=== PATIENT | male | born 1970 | race Hispanic/Latino ===

== ENCOUNTER 2016-10-31 17:52 | Emergency (ER) | payer MEDICARE, MEDICAID ==
[2016-10-31 18:24] VITALS: BMI 44.9
[2016-10-31 18:27] VITALS: BP 137/97; PULSE 81; RESP 18; TEMP 98.7; O2SAT 97
[2016-10-31] MEDS ORDERED: Amoxicillin-Clav 875-125 mg Tab PO STA (18:51)
--- NOTE | 2016-10-31 18:55 | ED PDOC ---
Arrival/HPI - General Historian: Patient - General Chief Complaint: ENT Problem Time Seen by Provider: 10/31/16 18:51 - History of Present Illness Narrative History of Present Illness (Text): 10/31/16 18:52 45 y/o male, pmh including htn, nkda, c/o frontal sinus pressure and coughing x 2 days with no recent traveling. Sinus pressure, associated with the runny nose , no bodyache or fever, no chills or night sweat, no chest pain or shortness of breath, no numbness or tingling, no palpitation, no other medical or psychological complaints. (Andres Machado) Past Medical History - Provider Review Nursing Documentation Reviewed: Yes - Infectious Disease Hx of Infectious Diseases: None - Tetanus Immunization Tetanus Immunization: Unknown - Cardiac Hx Hypertension: Yes - Pulmonary Hx Asthma: Yes - Neurological Hx Neurological Disorder: No - HEENT Hx HEENT Disorder: No - Renal Hx Renal Disorder: No - Endocrine/Metabolic Hx Diabetes Mellitus Type 2: Yes - Hematological/Oncological Hx Blood Disorders: No - Integumentary Hx Dermatological Disorder: No - Musculoskeletal/Rheumatological Hx Musculoskeletal Disorders: No - Gastrointestinal Hx Gastrointestinal Disorders: No - Genitourinary/Gynecological Hx Genitourinary Disorders: No - Psychiatric Hx Depression: No Hx Substance Use: No - Past Surgical History Past Surgical History: No Previous - Anesthesia Hx Anesthesia: No Hx Anesthesia Reactions: No Hx Malignant Hyperthermia: No - Suicidal Assessment Feels Threatened In Home Enviroment: No Family/Social History - Physician Review Nursing Documentation Reviewed: Yes Family/Social History: Unknown Family HX Smoking Status: Current Some Days Smoker Hx Alcohol Use: Yes Frequency of alcohol use: Socially Hx Substance Use: No Hx Substance Use Treatment: No Allergies/Home Meds Allergies/Adverse Reactions: Allergies No Known Allergies Allergy (Verified 05/23/16 13:47) Review of Systems - Review of Systems Constitutional: absent: Fatigue, Fevers Eyes: absent: Vision Changes ENT: Rhinorrhea, Sinus Congestion. absent: Hearing Changes Respiratory: Cough. absent: SOB, Sputum, Wheezing Cardiovascular: absent: Chest Pain, Palpitations, Edema Gastrointestinal: absent: Abdominal Pain, Diarrhea, Nausea, Vomiting Musculoskeletal: absent: Arthralgias, Back Pain, Neck Pain, Joint Swelling, Myalgias Neurological: absent: Headache, Dizziness, Focal Weakness, Gait Changes, Speech Changes, Facial Droop, Disequilibrium, Seizure Endocrine: absent: Diaphoresis, Polyuria, Polydipsia Hemo/Lymphatic: absent: Adenopathy, Easy Bleeding, Easy Bruising Physical Exam Vital Signs Reviewed: Yes Temperature: Afebrile Blood Pressure: Normal Pulse: Regular Respiratory Rate: Normal Appearance: Positive for: Well-Appearing, Non-Toxic, Comfortable Pain Distress: Moderate Mental Status: Positive for: Alert and Oriented X 3 - Systems Exam Head: Present: Atraumatic, Normocephalic, Other (+ttp on the rt. frontal sinus with no swelling, no periorbital or facial swelling. ) Pupils: Present: PERRL Extroacular Muscles: Present: EOMI Conjunctiva: Present: Normal Mouth: Present: Moist Mucous Membranes Neck: Present: Normal Range of Motion Respiratory/Chest: Present: Clear to Auscultation, Good Air Exchange. No: Respiratory Distress, Accessory Muscle Use, Wheezes, Decreased Breath Sounds, Rales, Retracting, Rhonchi Cardiovascular: Present: Regular Rate and Rhythm, Normal S1, S2. No: Murmurs Abdomen: Present: Normal Bowel Sounds. No: Tenderness, Distention, Peritoneal Signs, Rebound, Guarding Back: Present: Normal Inspection Upper Extremity: Present: Normal Inspection. No: Cyanosis, Edema Lower Extremity: Present: Normal Inspection. No: Edema Neurological: Present: GCS=15, Speech Normal, Motor Func Grossly Intact, Gait Normal, Memory Normal Skin: Present: Warm, Dry, Normal Color. No: Rashes Psychiatric: Present: Alert, Oriented x 3, Normal Insight, Normal Concentration Vital Signs Temp Pulse Resp BP Pulse Ox 10/31/16 18:24 98.7 F 81 18 137/97 H 97 Medical Decision Making ED Course and Treatment: I was available for consultation during PA evaluation. The chart was reviewed by me, and I agree with disposition. The documented history was done by the physician cash applications associate. The documented physical exam was done by the physician cash applications associate. The documented procedures were done by the physician cash applications associate. ( Esau Wadsworth) 10/31/16 18:54 -Chest x-ray -Rapid flu -Toradol and augmentin -Observe and reassess 10/31/16 20:24 -Pt. refused chest x-ray, stated that he will see his own pmd tomorrow as he is feeling better already. -Discharge home with cefdinir, flonase, motrin, zyrtec, promethazine dm, stay hydrated, follow up with your own pmd and ENT within 2 days, return to the ER for any new or worsening signs or symptoms. (Andres Machado) - Lab Interpretations Lab Results: Lab Results 10/31/16 19:03: Influenza Typ A,B (EIA) Negative for flu a/b - RAD Interpretation Radiology Orders: 10/31/16 18:58 CHEST PORTABLE [RAD] Stat - Medication Orders Current Medication Orders: Discontinued Medications Amoxicillin/Clavulanate Potassium (Augmentin 875 Mg-125 Mg Tab) 1 tab PO STAT STA PRN Reason: Protocol Stop: 10/31/16 18:52 Last Admin: 10/31/16 19:00 Dose: 1 TAB Ketorolac Tromethamine (Toradol) 60 mg IM STAT STA Stop: 10/31/16 18:52 Last Admin: 10/31/16 19:01 Dose: 60 MG IM Administration Charges Document 10/31/16 19:01 SE (Rec: 10/31/16 19:01 SE [id number]) Injection Site MAR Injection Site Left Arm Charges for Administration # of IM Administrations 1 - PA / [employer] / Resident Statement MD/DO has reviewed & agrees with the documentation as recorded. Disposition/Present on Arrival - Present on Arrival Any Indicators Present on Arrival: No History of DVT/PE: No History of Uncontrolled Diabetes: Yes Urinary Catheter: No History of Decub. Ulcer: No History Surgical Site Infection Following: None - Disposition Have Diagnosis and Disposition been Completed?: Yes Disposition Time: 18:54 Patient Plan: Discharge - Disposition Diagnosis: Sinusitis Disposition: HOME/ ROUTINE Patient Problems: Current Active Problems Problem Status Diagnosed Sinusitis Acute Condition: IMPROVED Additional Instructions: Discharge home with cefdinir, flonase, motrin, zyrtec, promethazine dm, stay hydrated, follow up with your own pmd and ENT within 2 days, return to the ER for any new or worsening signs or symptoms. Prescriptions: Fluticasone Nasal [Flonase] 2 spr NS DAILY #1 spr Ibuprofen [Motrin] 600 mg PO QID PRN #24 tab PRN Reason: Other Cefdinir [Omnicef] 300 mg PO BID #20 cap Promethazine DM [Phenergan DM Oral Syrup] 5 ml PO QID PRN #125 ml PRN Reason: Other Cetirizine HCl [Zyrtec] 10 mg PO DAILY #7 tab.rapdis Referrals: Michael Main MD [Primary Care Provider] - Follow up with primary Hugo Ralph DO [Doctor Osteopathy] - Follow up with primary Forms: WORK NOTE
== END 2016-10-31 20:30 | disposition home or self-care (01) ==
LOC: ED 17:52
DX: J32.9 Chronic sinusitis, unspecified (principal); I10 Essential (primary) hypertension
CPT/HCPCS: 87804; 96372; 99282; J1885

== ENCOUNTER 2017-03-09 13:23 | Emergency (ER) | payer MEDICAID, MEDICARE ==
[2017-03-09 13:48] VITALS: BMI 44.4
--- NOTE | 2017-03-09 13:59 | ED PDOC ---
Arrival/HPI - General Chief Complaint: Shortness Of Breath Time Seen by Provider: 03/09/17 13:29 Historian: Patient - History of Present Illness Narrative History of Present Illness (Text): 03/09/17 13:56 46 y/o male with past medical history of asthma presents for SOB since last night. SOB has been gradually worsening. Patient has been using Ventolin inhaler without much relief. Patient denies having any CP, cough, F/C, congestion, sick contact, LE pain or swelling. Patient does not have hx of blood clot. patient denies having any hx. of intubation. Time/Duration: 24 hours Symptom Onset: Gradual Symptom Course: Worsening Context: Home Past Medical History - Provider Review Nursing Documentation Reviewed: Yes - Travel History Have you recently traveled outside [place] w/in the past 3 mons?: No - Infectious Disease Hx of Infectious Diseases: None - Tetanus Immunization Tetanus Immunization: Unknown - Cardiac Hx Hypertension: Yes - Pulmonary Hx Asthma: Yes - Neurological Hx Neurological Disorder: No - HEENT Hx HEENT Disorder: No - Renal Hx Renal Disorder: No - Endocrine/Metabolic Hx Diabetes Mellitus Type 2: Yes - Hematological/Oncological Hx Blood Disorders: No - Integumentary Hx Dermatological Disorder: No - Musculoskeletal/Rheumatological Hx Musculoskeletal Disorders: No - Gastrointestinal Hx Gastrointestinal Disorders: No - Genitourinary/Gynecological Hx Genitourinary Disorders: No - Psychiatric Hx Depression: No Hx Substance Use: No - Past Surgical History Past Surgical History: No Previous - Anesthesia Hx Anesthesia: No Hx Anesthesia Reactions: No Hx Malignant Hyperthermia: No - Suicidal Assessment Feels Threatened In Home Enviroment: No Family/Social History - Physician Review Nursing Documentation Reviewed: Yes Family/Social History: Unknown Family HX Smoking Status: Current Some Days Smoker Hx Alcohol Use: Yes Frequency of alcohol use: Socially Hx Substance Use: No Hx Substance Use Treatment: No Allergies/Home Meds Allergies/Adverse Reactions: Allergies No Known Allergies Allergy (Verified 05/23/16 13:47) Review of Systems - Review of Systems Constitutional: Normal. absent: Fatigue, Fevers Eyes: Normal. absent: Vision Changes, Eye Pain ENT: Normal. absent: Sore Throat, Rhinorrhea, Sinus Congestion Respiratory: SOB, Wheezing. absent: Cough, Sputum Cardiovascular: absent: Chest Pain, Palpitations, Edema, Calf Pain Gastrointestinal: Normal. absent: Abdominal Pain, Constipation, Diarrhea, Nausea, Vomiting Genitourinary Male: Normal. absent: Dysuria, Frequency Skin: Normal. absent: Rash, Pruritis, Skin Lesions Neurological: absent: Headache, Dizziness, Disequilibrium Endocrine: Normal. absent: Diaphoresis, Polyuria Hemo/Lymphatic: Normal. absent: Adenopathy Psychiatric: Normal. absent: Anxiety, Depression Physical Exam Vital Signs Reviewed: Yes Vital Signs Temp Pulse Resp BP Pulse Ox 03/09/17 15:40 97.6 F 106 H 18 126/75 96 03/09/17 15:23 108 H 18 126/75 96 03/09/17 13:48 18 03/09/17 13:45 98.5 F 113 H 16 146/89 98 Temperature: Afebrile Blood Pressure: Hypertensive Pulse: Tachycardic Respiratory Rate: Normal Appearance: Positive for: Well-Appearing, Non-Toxic, Comfortable Pain Distress: None Mental Status: Positive for: Alert and Oriented X 3 - Systems Exam Head: Present: Atraumatic, Normocephalic Pupils: Present: PERRL Extroacular Muscles: Present: EOMI Mouth: Present: Moist Mucous Membranes Respiratory/Chest: Present: Clear to Auscultation, Good Air Exchange. No: Respiratory Distress, Accessory Muscle Use Cardiovascular: Present: Regular Rate and Rhythm, Normal S1, S2. No: Murmurs, Rub, Gallop, Muffled Abdomen: Present: Normal Bowel Sounds. No: Tenderness, Distention, Peritoneal Signs, Rebound, Guarding Lower Extremity: Present: Normal Inspection. No: Edema, CALF TENDERNESS Neurological: Present: GCS=15, Speech Normal Skin: Present: Warm, Dry, Normal Color. No: Rashes, Cold, Pale Psychiatric: Present: Alert, Oriented x 3, Normal Insight, Normal Concentration Medical Decision Making ED Course and Treatment: 03/09/17 14:00 46 y/o M presents with SOB likely due to asthma exacerbation Will check CXR Patient will be given prednisone 60 mg PO stat and give a duoneb breathing treatment 03/09/17 14:02 Well's criteria is 1.5 which means 1.5% chance of PE 03/09/17 15:16 Patient is saturating at 100%. Patient states that his breathing has improved. Will discharge patient will nebulizer machine, steroids and albuterol - RAD Interpretation Radiology Orders: 03/09/17 13:48 CXR [CHEST PORTABLE] [RAD] Stat - EKG Interpretation EKG Interpretation (Text): 03/09/17 14:23 Sinus tachycardia HR 108. No St changes, normal axis and normal intervals Interpreted by ED Physician: Yes Type: 12 lead EKG - Medication Orders Current Medication Orders: Discontinued Medications Albuterol/Ipratropium (Duoneb 3 Mg/0.5 Mg (3 Ml) Ud) 3 ml IH Q15M VENITA Stop: 03/09/17 14:31 Last Admin: 03/09/17 15:09 Dose: 3 ml Methylprednisolone (Solu-Medrol) 125 mg IVP STAT STA Stop: 03/09/17 15:37 Last Admin: 03/09/17 14:05 Dose: 125 mg Wells Criteria for PE - Wells Criteria for Pulmonary Embolism Clinical Signs and Symptoms of DVT: No P.E is #1 Diagnosis, or Equally Likely: No Heart Rate >100: Yes Immobilization at least 3 days;Surgery previous 4 weeks: No Previous, objectively diagnosed PE or DVT: No Hemoptysis: No Malignancy w/treatment within 6 months, or palliative: No Total Score: 1.5 Disposition/Present on Arrival - Present on Arrival Any Indicators Present on Arrival: No History of DVT/PE: No History of Uncontrolled Diabetes: No Urinary Catheter: No History of Decub. Ulcer: No History Surgical Site Infection Following: None - Disposition Have Diagnosis and Disposition been Completed?: Yes Diagnosis: Shortness of breath Disposition: HOME/ ROUTINE Disposition Time: 15:19 Patient Plan: Discharge Condition: GOOD Additional Instructions: Joon Hendricks, thank you for letting us take care of you today. Your provider was Dr. Latonia Arias. You were treated for shortness of breath. The emergency medical care you received today was directed at your acute symptoms. If you were prescribed any medication, please fill it and take as directed. It may take several days for your symptoms to resolve. Return to the Emergency Department if your symptoms worsen, do not improve, or if you have any other problems. Please contact your doctor or call one of the physicians/clinics you have been referred to that are listed on the Patient Visit Information form that is included in your discharge packet. Bring any paperwork you were given at discharge with you along with any medications you are taking to your follow up visit. Our treatment cannot replace ongoing medical care by a primary care provider (PCP) outside of the emergency department. Thank you for allowing the [facility] team to be part of your care today. If you had an X-Ray or CT scan: A Radiologist will review the ED reading if any change in treatment is needed we will contact you. If you had a blood, urine, or wound culture: It will take several days for the results, if any change in treatment is needed we will contact you. If you had an STI test: It will take 48 hours for the results. Please call after 1 week if you have not heard back. Prescriptions: Albuterol 0.083% [Albuterol 0.083% Inhal Radha (2.5 mg/3 ml) UD] 2.5 mg IH PRN PRN #1 neb PRN Reason: Shortness Of Breath Nebulizer [Aerosol Therapy Nebulizer] 1 dev IH PRN PRN #1 dev PRN Reason: asthma predniSONE [predniSONE Tab] 40 mg PO DAILY #8 tab Referrals: Michael Main MD [Primary Care Provider] - Follow up with primary Forms: [employer] (Serbian)
[2017-03-09 14:01] VITALS: RESP 18
[2017-03-09] MEDS: Albuterol-Ipratrop 3 mg / 0.5 (3 ml) UD IH SCH ×3 (14:04→15:09)
--- NOTE | 2017-03-09 14:37 | RAD ---
HISTORY: shortness of breath COMPARISON: 05/23/2016 FINDINGS: LUNGS: No active pulmonary disease. PLEURA: No significant pleural effusion identified, no pneumothorax apparent. CARDIOVASCULAR: Normal. OSSEOUS STRUCTURES: No significant abnormalities. VISUALIZED UPPER ABDOMEN: Normal. OTHER FINDINGS: None. IMPRESSION: No active disease.
[2017-03-09 15:27] VITALS: BP 126/75; O2SAT 96
[2017-03-09 15:44] VITALS: PULSE 106; TEMP 97.6
--- NOTE | 2017-03-10 00:13 | CARD ---
APPROVED REPORT EKG Measurement Heart [id number] <Conclusion> Sinus tachycardia Possible Inferior infarct, age undetermined Abnormal ECG
== END 2017-03-09 15:40 | disposition home or self-care (01) ==
LOC: ED 13:23
DX: R06.02 Shortness of breath (principal)
CPT/HCPCS: 71010; 93005; 96374; 99284; J2930

== ENCOUNTER 2018-02-10 05:53 | Emergency (ER) | payer MEDICARE, MEDICAID ==
[2018-02-10 06:31] VITALS: BMI 55.5
[2018-02-10 07:40] VITALS: RESP 18
[2018-02-10] MEDS ORDERED: Oxycodone/Acetaminophen 5/325 mg Tab PO STA (07:42)
[2018-02-10] MEDS ORDERED: cefTRIAXone 1 gm 1 GM/100 ML BAG IVPB STA (07:42)
--- NOTE | 2018-02-10 08:22 | ED PDOC ---
Arrival/HPI - General Chief Complaint: ENT Problem Time Seen by Provider: 02/10/18 07:17 Historian: Patient - History of Present Illness Narrative History of Present Illness (Text): 02/10/18 08:21 Patient is a 47 year old male with a past medical history of diabetes, hypertension, and asthma, presents to the emergency department complaining of increasing right ear pain described as "ringing" over the past 3 days. Patient feels his right ear is "clogged" and cannot hear as well. Patient states he visited an outside emergency department 10 days with the presented symptoms and was treated with oral antibiotics and ear drops antibiotics. Patient reports he did not have pain at that time but developed in the past 3 days. Patient denies any headache, nausea, vomiting, dental pain, sore throat, or any other complaints. Time/Duration: < week (3 days) Symptom Onset: Gradual Symptom Course: Unchanged Quality: Aching Activities at Onset: Light Context: Home Past Medical History - Provider Review Nursing Documentation Reviewed: Yes - Infectious Disease Hx of Infectious Diseases: None - Tetanus Immunization Tetanus Immunization: Unknown - Cardiac Hx Hypertension: Yes - Pulmonary Hx Asthma: Yes - Neurological Hx Neurological Disorder: No - HEENT Hx HEENT Disorder: No - Renal Hx Renal Disorder: No - Endocrine/Metabolic Hx Diabetes Mellitus Type 2: Yes - Hematological/Oncological Hx Blood Disorders: No - Integumentary Hx Dermatological Disorder: No - Musculoskeletal/Rheumatological Hx Musculoskeletal Disorders: No - Gastrointestinal Hx Gastrointestinal Disorders: No - Genitourinary/Gynecological Hx Genitourinary Disorders: No - Psychiatric Hx Psychophysiologic Disorder: Yes Hx Depression: Yes Hx Substance Use: No - Past Surgical History Past Surgical History: No Previous - Anesthesia Hx Anesthesia: No Hx Anesthesia Reactions: No Hx Malignant Hyperthermia: No - Suicidal Assessment Feels Threatened In Home Enviroment: No Family/Social History - Physician Review Nursing Documentation Reviewed: Yes Family/Social History: No Known Family HX Smoking Status: Heavy Smoker > 10 Cigarettes Daily Hx Alcohol Use: Yes Frequency of alcohol use: Socially Hx Substance Use: No Hx Substance Use Treatment: No Allergies/Home Meds Allergies/Adverse Reactions: Allergies No Known Allergies Allergy (Verified 06/06/17 12:50) Home Medications: Home Meds Medication Instructions Recorded Confirmed Ofloxacin Otic 0.3% [Floxin 0.3% 5 drop .ROUTE BID 02/10/18 02/10/18 Otic Soln] Review of Systems - Review of Systems Constitutional: absent: Fatigue, Fevers Eyes: absent: Vision Changes ENT: Other (right ear pain and muffled hearing). absent: Sore Throat, Rhinorrhea Respiratory: absent: SOB Cardiovascular: absent: Chest Pain Gastrointestinal: absent: Abdominal Pain Musculoskeletal: absent: Back Pain, Neck Pain Skin: absent: Rash Neurological: absent: Headache, Dizziness, Focal Weakness, Speech Changes, Seizure Psychiatric: absent: Anxiety, Depression Physical Exam - Physical Exam Narrative Physical Exam (Text): 02/10/18 08:30 Head: Atraumatic. Normocephalic. Eyes: PERRL. EOMI. Conjunctivae are not pale. ENT: Mucous membranes are moist and intact. Oropharynx is clear and symmetric. Neck: Supple. Full ROM. No JVD. No lymphadenopathy. Cardiovascular: Regular rate. Regular rhythm. No murmurs, rubs, or gallops. Distal pulses are 2+ and symmetric. Pulmonary/Chest: No evidence of respiratory distress. Clear to auscultation bilaterally. No wheezing, rales or rhonchi. Abdominal: Soft and non-distended. There is no tenderness. No rebound, guarding, or rigidity. No organomegaly. Good bowel sounds. Back: No CVA tenderness. Extremities: No edema. No cyanosis. No clubbing. Full range of motion in all extremities. No calf tenderness. Skin: Skin is warm and dry. No petechiae. No purpura. Neurological: Alert, awake, and oriented to person, place, time, and situation. Normal speech. Psychiatric: Good eye contact. Normal interaction, affect, and behavior. Vital Signs Reviewed: Yes Vital Signs Temp Pulse Resp BP Pulse Ox 02/10/18 12:46 98 F 82 18 119/75 99 02/10/18 10:00 88 18 117/62 99 02/10/18 07:39 92 H 18 130/52 L 97 02/10/18 06:49 98.3 F 91 H 22 147/100 H 96 Temperature: Afebrile Appearance: Positive for: Uncomfortable Pain Distress: Moderate Mental Status: Positive for: Alert and Oriented X 3 - Systems Exam Head: Present: Atraumatic, Normocephalic, Other (no mastoid tenderness) Pupils: Present: PERRL Extroacular Muscles: Present: EOMI Conjunctiva: No: Injected Ears: Present: Other (right ear canal edematous with purulence but no drainage currently, TM is partially obsured but no perforation noted). No: Normal Canal Mouth: Present: Moist Mucous Membranes Pharnyx: No: ERYTHEMA, TONSILS ENLARGED Nose (Internal): Present: Normal Inspection Neck: Present: Normal Range of Motion. No: Meningeal Signs Respiratory/Chest: No: Respiratory Distress Cardiovascular: Present: Regular Rate and Rhythm Neurological: Present: CN II-XII Intact, Speech Normal, Motor Func Grossly Intact, Normal Sensory Function Skin: Present: Warm, Dry Psychiatric: Present: Alert, Normal Insight, Normal Concentration Medical Decision Making ED Course and Treatment: 02/10/18 08:36 Impression: Patient is a 47 year old male presenting to the Emergency department for right ear pain. Differential Diagnosis included but are not limited to: Otitis externa vs. mastoiditis vs. abscess Plan: -- CT w/ contrast of mastoid -- Labs -- Reassess and disposition Prior Visits: Notes and results from previous visits were reviewed. Progress Notes: 02/10/18 08:36 Patient has signs of right otitis externa. He denies diabetes. He has been taking floxin otic and amoxicillin for past week. 02/10/18 10:05 CT of auditory canal reviewed by radiologist, shows right sided otitis externa with no evidence of otitis media or mastoiditis Patient's pain improved after pain medication. Risks/side effects of medication reviewed with patient. I placed wick in his right ear to facilitate drainage. He will treated with augment, cortisporin otic. Given persistence of symptoms I have referred him to oncall ENT. Risks of noncompliance with follow-up reviewed with patient. Have instructed return to ER or PMD for any worsening or persistent symptoms. - Lab Interpretations Lab Results: 02/10/18 08:20 02/10/18 08:20 Lab Results 02/10/18 08:20: Sodium 141, Potassium 4.6, Chloride 104, Carbon Dioxide 27, Anion Gap 14, BUN 15, Creatinine 0.8, Est GFR ( Amer) > 60, Est GFR (Non- Af Amer) > 60, Random Glucose 165 H, Calcium 8.9, Total Bilirubin 0.8, AST 42, ALT 59 H, Alkaline Phosphatase 73, Total Protein 7.3, Albumin 4.1, Globulin 3.2 , Albumin/Globulin Ratio 1.3 02/10/18 08:20: WBC 4.6 D, RBC 4.32, Hgb 13.6 L, Hct 40.0 L, MCV 92.6, MCH 31.5 , MCHC 34.0, RDW 14.3, Plt Count 122, MPV 9.5, Gran % 63.9, Lymph % (Auto) 23.9 , Cole % (Auto) 7.1 H, Eos % (Auto) 4.7, Baso % (Auto) 0.4, Gran # 2.96, Lymph # (Auto) 1.1 L, Cole # (Auto) 0.3, Eos # (Auto) 0.2, Baso # (Auto) 0.02 - RAD Interpretation Radiology Orders: 02/10/18 07:41 IAC W/O CONTRAST [CT] Stat - Medication Orders Current Medication Orders: Discontinued Medications Ceftriaxone Sodium (Rocephin 1 Gram Ivpb) 1 gm in 100 mls @ 200 mls/hr IVPB ONCE STA PRN Reason: Protocol Stop: 02/10/18 08:11 Last Admin: 02/10/18 08:10 Dose: 200 mls/hr eMAR Start Stop Document 02/10/18 08:10 OREN (Rec: 02/10/18 08:10 OREN [email or web address]) Intravenous Solution Start Date 02/10/18 Start Time 08:10 End Date 02/10/18 End time 08:40 Total Infusion Time 30 Neomycin/Polymyxin/Hydrocortisone (Cortisporin Otic Susp) 0 ml AU STAT STA Stop: 02/10/18 10:51 Oxycodone/Acetaminophen (Percocet 5/325 Mg Tab) 1 tab PO STAT STA Stop: 02/10/18 07:43 Last Admin: 02/10/18 08:10 Dose: 1 tab MAR Pain Assessment Document 02/10/18 08:10 OREN (Rec: 02/10/18 08:10 OREN PETTY-PC) Pain Reassessment Is this a pain reassessment? No Sleep Is patient sleeping during reassessment? No Presence of Pain Presence of Pain Yes - Scribe Statement The provider has reviewed the documentation as recorded by the [facility] training under [facility]. All medical record entries made by the Scribe were at my direction and personally dictated by me. I have reviewed the chart and agree that the record accurately reflects my personal performance of the history, physical exam, medical decision making, and the department course for this patient. I have also personally directed, reviewed, and agree with the discharge instructions and disposition. Disposition/Present on Arrival - Present on Arrival Any Indicators Present on Arrival: No History of DVT/PE: No History of Uncontrolled Diabetes: No Urinary Catheter: No History of Decub. Ulcer: No History Surgical Site Infection Following: None - Disposition Have Diagnosis and Disposition been Completed?: Yes Diagnosis: Right otitis externa Disposition: HOME/ ROUTINE Disposition Time: 12:34 Patient Plan: Discharge Condition: GOOD Discharge Instructions (ExitCare): Outer Ear Infection (DC) Additional Instructions: For any facial swelling, any fevers, any headaches, any nausea or vomiting, any pus or bleeding, any persistent or worsening of symptoms, get rechecked. Follow-up with an "ENT" physician in 1-2 days. Take pain medication with caution and only as directed. Take antibiotic as directed. Use ear drops, four drops to right ear, four times a day. Prescriptions: Amoxicillin/Clavulanate [Augmentin 875 MG-125 MG] 1 tab PO BID #20 tab oxyCODONE/Acetaminophen [Percocet 5/325 mg Tab] 1 ea PO Q6 PRN #8 tab PRN Reason: severe pain Referrals: Michael Main MD [Primary Care Provider] - Follow up with primary Syd Montaño DO [Staff Provider] - Follow up with primary Forms: [employer] (Yakut)
[2018-02-10 08:32] LABS: BASO # 0.02 K/mm3 (0.0-2.0); BASO % 0.4 % (0.0-3.0); EOS # 0.2 (0.0-0.7); EOS % 4.7 % (1.5-5.0); GRAN # 2.96 (1.4-6.5); GRAN % 63.9 % (50.0-68.0); HEMOGLOBIN 13.6 g/dL (14.0-18.0); LYMPH # 1.1 (1.2-3.4); LYMPH % 23.9 % (22.0-35.0); MEAN CELL VOLUME 92.6 fl (80.0-105.0); MEAN CORPUSCULAR HEMOGLOBIN 31.5 pg (25.0-35.0); MEAN PLATELET VOLUME 9.5 fl (7.0-11.0); MONO # 0.3 (0.1-0.6); MONO % 7.1 % (1.0-6.0); RBC 4.32 10^6/uL (3.5-6.1); RED CELL DISTRIBUTION WIDTH 14.3 % (11.5-14.5); WHITE BLOOD COUNT 4.6 10^3/ul (4.5-11.0)
[2018-02-10 08:36] LABS: ALB/GLOB RATIO 1.3 (1.1-1.8); ALBUMIN 4.1 g/dL (3.0-4.8); ALT/SGPT 59 U/L (7-56); AST/SGOT 42 U/L (17-59); BLOOD UREA NITROGEN 15 mg/dL (7-21); CALCIUM 8.9 mg/dL (8.4-10.5); GFR AFRICAN-AMERICAN > 60; GFR NON-AFRICAN AMERICAN > 60
--- NOTE | 2018-02-10 09:35 | CT ---
Date of service: 02/10/2018 PROCEDURE: CT OF THE TEMPORAL BONES WITHOUT CONTRAST HISTORY: right otitis externa, eval for mastoiditis COMPARISON: None available. TECHNIQUE: High resolution axial images of the temporal bones were obtained. Coronal and sagittal reformats were generated. Radiation dose: Total exam DLP = 742 mGy-cm. This CT exam was performed using one or more of the following dose reduction techniques: Automated exposure control, adjustment of the mA and/or kV according to patient size, and/or use of iterative reconstruction technique. FINDINGS: RIGHT TEMPORAL BONE: RIGHT MIDDLE EAR: Normal RIGHT INNER EAR: Cochlea: Normal Semicircular canals: Normal RIGHT MASTOID AIR CELLS: Normal RIGHT INTERNAL AUDITORY CANAL: Normal RIGHT EXTERNAL AUDITORY CANAL: There is severe of otitis externa with mural thickening and nearly complete opacification of the external canal. RIGHT VESTIBULAR AND COCHLEAR AQUEDUCT: Normal OTHER: LEFT TEMPORAL BONE: LEFT MIDDLE EAR: Normal LEFT INNER EAR: Cochlea: Normal Semicircular canals: Normal LEFT MASTOID AIR CELLS: Normal LEFT INTERNAL AUDITORY CANAL: Normal LEFT EXTERNAL AUDITORY CANAL: Normal LEFT VESTIBULAR AND COCHLEAR AQUEDUCTS: Normal OTHER FINDINGS: None . IMPRESSION: Right-sided otitis externa with no evidence of otitis media or mastoiditis.
[2018-02-10 10:47] VITALS: O2SAT 99
[2018-02-10] MEDS ORDERED: Neomycin/Polymyxin/Hydrocort Otic Susp (10 ml) AU STA (10:50)
[2018-02-10 12:47] VITALS: BP 119/75; PULSE 82; TEMP 98
== END 2018-02-10 13:30 | disposition home or self-care (01) ==
LOC: ED 05:53
DX: H60.91 Unspecified otitis externa, right ear (principal); I10 Essential (primary) hypertension; F17.210 Nicotine dependence, cigarettes, uncomplicated
CPT/HCPCS: 70480; 80053; 85025; 96365; 99284; J0696

== ENCOUNTER 2018-08-21 10:47 | Emergency (ER) | payer MEDICAID, MEDICARE ==
[2018-08-21 11:05] VITALS: BMI 55.9
[2018-08-21 11:08] VITALS: RESP 18; TEMP 98.3
[2018-08-21 12:08] LABS: BASO # 0.01 K/mm3 (0.0-2.0); BASO % 0.1 % (0.0-3.0); EOS % 0.4 % (1.5-5.0); GRAN # 5.4 (1.4-6.5); GRAN % 80.4 % (50.0-68.0); HEMOGLOBIN 13.8 g/dL (14.0-18.0); LYMPH # 0.8 (1.2-3.4); LYMPH % 12.3 % (22.0-35.0); MEAN CELL VOLUME 94.6 fl (80.0-105.0); MEAN CORPUSCULAR HEMOGLOBIN 31.3 pg (25.0-35.0); MEAN CORPUSCULAR HGB CONC 33.1 g/dl (31.0-37.0); MEAN PLATELET VOLUME 9.2 fl (7.0-11.0); MONO # 0.5 (0.1-0.6); MONO % 6.8 % (1.0-6.0); RBC 4.41 10^6/uL (3.5-6.1); RED CELL DISTRIBUTION WIDTH 13.8 % (11.5-14.5); WHITE BLOOD COUNT 6.7 10^3/uL (4.5-11.0)
[2018-08-21 12:16] LABS: ALB/GLOB RATIO 1.1 (1.1-1.8); ALBUMIN 4.1 g/dL (3.0-4.8); ALT/SGPT 77 U/L (7-56); AST/SGOT 39 U/L (17-59); BLOOD UREA NITROGEN 10 mg/dL (7-21); CALCIUM 9.1 mg/dL (8.4-10.5); GFR NON-AFRICAN AMERICAN > 60
--- NOTE | 2018-08-21 12:16 | ED PDOC ---
Arrival/HPI - General Chief Complaint: Dental Pain Historian: Patient - History of Present Illness Narrative History of Present Illness (Text): 08/21/18 12:13 47 year old male, whose past medical history includes hypertension, psoriasis, asthma, and dental caries, presents to the emergency department complaining of left sided dental and nasal pain with associated facial swelling for the last 3 days. He states that the inside of left nostril became red and painful that has since spread to his upper lip and left side of his face, he also complains of pain in his left upper gums. He states he has never seen a dentists for his dental caries. Patient reports he took 800mg ibuprofen at 5am without relief and the pain worsens when he eats. He denies fevers, vision changes, chills, headache, dizziness, chest pain, shortness of breath, dyspnea on exertion, cough, abdominal pain, nausea, vomiting, diarrhea, back pain, neck pain, or any other complaint. Past Medical History - Provider Review Nursing Documentation Reviewed: Yes - Infectious Disease Hx of Infectious Diseases: None - Tetanus Immunization Tetanus Immunization: Unknown - Cardiac Hx Hypertension: Yes - Pulmonary Hx Asthma: Yes - Neurological Hx Neurological Disorder: No - HEENT Hx HEENT Disorder: No - Renal Hx Renal Disorder: No - Endocrine/Metabolic Hx Diabetes Mellitus Type 2: Yes - Hematological/Oncological Hx Blood Disorders: No - Integumentary Hx Dermatological Disorder: No - Musculoskeletal/Rheumatological Hx Musculoskeletal Disorders: No - Gastrointestinal Hx Gastrointestinal Disorders: No - Genitourinary/Gynecological Hx Genitourinary Disorders: No - Psychiatric Hx Psychophysiologic Disorder: Yes Hx Depression: Yes Hx Substance Use: No - Past Surgical History Past Surgical History: No Previous - Anesthesia Hx Anesthesia: No Hx Anesthesia Reactions: No Hx Malignant Hyperthermia: No - Suicidal Assessment Feels Threatened In Home Enviroment: No Family/Social History - Physician Review Nursing Documentation Reviewed: Yes Family/Social History: No Known Family HX Smoking Status: vape Hx Alcohol Use: Yes Frequency of alcohol use: Socially Hx Substance Use: No Hx Substance Use Treatment: No Allergies/Home Meds Allergies/Adverse Reactions: Allergies No Known Allergies Allergy (Verified 06/06/17 12:50) Home Medications: Home Meds Medication Instructions Recorded Confirmed RX: Ofloxacin Otic 0.3% [Floxin 5 drop .ROUTE BID 07/14/18 07/14/18 0.3% Otic Soln] Review of Systems - Physician Review All systems were reviewed & negative as marked: Yes - Review of Systems Constitutional: absent: Fevers Eyes: absent: Vision Changes ENT: Other (left sided dental and nasal pain with associated left sided facial swelling; pain to his nostril, gums, and upper lip) Respiratory: absent: SOB, Cough Cardiovascular: absent: Chest Pain Gastrointestinal: absent: Abdominal Pain Genitourinary Male: absent: Dysuria, Frequency Musculoskeletal: absent: Back Pain, Neck Pain Neurological: absent: Headache, Dizziness Physical Exam Vital Signs Reviewed: Yes Vital Signs Temp Pulse Resp BP Pulse Ox 08/21/18 11:08 98.3 F 95 H 18 120/66 95 Temperature: Afebrile Blood Pressure: Normal Pulse: Tachycardic Respiratory Rate: Normal Appearance: Positive for: Well-Appearing, Non-Toxic, Comfortable Pain Distress: None Mental Status: Positive for: Alert and Oriented X 3 - Systems Exam Head: Present: Atraumatic, Normocephalic Pupils: Present: PERRL Extroacular Muscles: Present: EOMI Conjunctiva: Present: Normal Mouth: Present: Moist Mucous Membranes Neck: Present: Normal Range of Motion Respiratory/Chest: Present: Clear to Auscultation, Good Air Exchange. No: Respiratory Distress, Accessory Muscle Use Cardiovascular: Present: Regular Rate and Rhythm, Normal S1, S2. No: Murmurs Abdomen: No: Tenderness, Distention, Peritoneal Signs Back: Present: Normal Inspection Upper Extremity: Present: Normal Inspection. No: Cyanosis, Edema Lower Extremity: Present: Normal Inspection. No: Edema Neurological: Present: GCS=15, CN II-XII Intact, Speech Normal Skin: Present: Warm, Dry, Normal Color. No: Rashes Psychiatric: Present: Alert, Oriented x 3, Normal Insight, Normal Concentration Medical Decision Making ED Course and Treatment: 08/21/18 12:10 Impression: 47 year old male, who presents to the emergency department complaining of left sided dental and nasal pain. Plan: -- Neck soft tissue w/contrast CT -- Labs -- Toradol -- Reassess and disposition Prior Visits: Notes and results from previous visits were reviewed. Progress Notes: - Lab Interpretations I have reviewed the lab results: Yes - RAD Interpretation Radiology Orders: 08/21/18 11:32 NECK SOFT TISSUE W/CONTRAST [CT] Stat - Medication Orders Current Medication Orders: Discontinued Medications Ketorolac Tromethamine (Toradol) 30 mg IVP STAT STA Stop: 08/21/18 11:32 Last Admin: 08/21/18 12:00 Dose: 30 mg MAR Pain Assessment Document 08/21/18 12:00 GMD (Rec: 08/21/18 12:00 GMD [place] [id number]) Pain Reassessment Is this a pain reassessment? 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 - Scribe Statement The provider has reviewed the documentation as recorded by the Scribe Marisol Riggs Provider Scribe Attestation: All medical record entries made by the Scribe were at my direction and personally dictated by me. I have reviewed the chart and agree that the record accurately reflects my personal performance of the history, physical exam, medical decision making, and the department course for this patient. I have also personally directed, reviewed, and agree with the discharge instructions and disposition. Disposition/Present on Arrival - Present on Arrival Any Indicators Present on Arrival: No History of DVT/PE: No History of Uncontrolled Diabetes: No Urinary Catheter: No History of Decub. Ulcer: No History Surgical Site Infection Following: None - Disposition Have Diagnosis and Disposition been Completed?: Yes Diagnosis: Dental caries, Cellulitis Disposition: HOME/ ROUTINE Disposition Time: 15:25 Patient Plan: Discharge Condition: IMPROVED Discharge Instructions (ExitCare): Tooth Decay, Adult, Cellulitis (ED) Prescriptions: Amoxicillin/Clavulanate [Augmentin 875 MG-125 MG] 1 tab PO Q12H #20 tab RX: Bacitracin OINT 1 applic TD DAILY #1 tube RX: Naproxen [Naprosyn] 500 mg PO DAILY PRN #14 tablet PRN Reason: Pain, Moderate (4-7) Referrals: James Rand DO [Staff Provider] - Follow up with primary Forms: [employer] (Spanish)
[2018-08-21] MEDS ORDERED: Sodium Chloride 0.9% 1,000 ML IV STA (12:17)
[2018-08-21] MEDS ORDERED: Iohexol 350 MG/100 ML VIAL ONE (13:01)
--- NOTE | 2018-08-21 13:32 | CT ---
Date of service: 08/21/2018 PROCEDURE: CT NECK WITH CONTRAST HISTORY: left sided facial swelling, pain COMPARISON: None available. TECHNIQUE: CT of the neck with intravenous contrast. Coronal and sagittal reformats generated. Intravenous contrast dose: 100 cc of Omni 350 Radiation dose: Total exam DLP = 831.0 mGy-cm. This CT exam was performed using one or more of the following dose reduction techniques: Automated exposure control, adjustment of the mA and/or kV according to patient size, and/or use of iterative reconstruction technique. FINDINGS: NASOPHARYNX: Unremarkable. SUPRAHYOID NECK: Unremarkable oropharynx, oral cavity, parapharyngeal space and retropharyngeal space. INFRAHYOID NECK: Unremarkable larynx, hypopharynx, and supraglottic space. Vocal cords intact. MASS: None. GLANDS: Parotid and submandibular glands unremarkable. Normal size thyroid gland, without nodule. LYMPH NODES: Normal. No lymphadenopathy. CERVICAL SPINE: No fracture or focal lesion. VASCULAR STRUCTURES: Unremarkable. OTHER FINDINGS: None. IMPRESSION: Unremarkable contrast enhanced CT of the neck.
[2018-08-21] MEDS ORDERED: Amoxicillin-Clav 875-125 mg Tab PO STA (14:13)
[2018-08-21 14:18] LABS: PH,URINE 5.5 (4.7-8.0); URINE BILIRUBIN NEGATIVE (NEGATIVE); URINE BLOOD MODERATE (NEGATIVE); URINE GLUCOSE (UA) 250 mg/dL (NEGATIVE); URINE LEUKOCYTE ESTERASE NEGATIVE Leu/uL (NEGATIVE); URINE PROTEIN 30 mg/dL (<30 mg/dL)
[2018-08-21 14:25] LABS: URINE APPEARANCE CLEAR (CLEAR); URINE COLOR YELLOW (YELLOW)
[2018-08-21 14:27] LABS: URINE BACTERIA MANY /hpf; URINE COARSE GRANULAR CAST TRACE /hpf; URINE WBC 0 - 2 /hpf (0-6)
[2018-08-21 14:28] LABS: URINE AMORPHOUS SEDIMENT FEW /hpf
[2018-08-21 14:59] VITALS: BP 124/68; PULSE 70; O2SAT 98
== END 2018-08-21 15:00 | disposition home or self-care (01) ==
LOC: ED 10:47
DX: K02.9 Dental caries, unspecified (principal); L03.211 Cellulitis of face; I10 Essential (primary) hypertension; E11.9 Type 2 diabetes mellitus without complications; F17.290 Nicotine dependence, other tobacco product, uncomplicated
CPT/HCPCS: 70491; 80053; 81001; 82948; 85025; 96361; 96374; 99284; J1885; J7030; Q9967

== ENCOUNTER 2018-08-21 22:09 | Emergency (ER) | payer MEDICARE ==
[2018-08-21 22:09] VITALS: BMI 55.9
[2018-08-21 22:31] VITALS: BP 141/81; PULSE 86; RESP 18; TEMP 99; O2SAT 95
[2018-08-21] MEDS ORDERED: Oxycodone/Acetaminophen 10/325 mg Tab PO STA (23:11)
--- NOTE | 2018-08-21 23:14 | ED PDOC ---
Arrival/HPI - General Chief Complaint: Dental Pain Time Seen by Provider: 08/21/18 22:43 Historian: Patient - History of Present Illness Narrative History of Present Illness (Text): 08/21/18 23:18 47 year old male, whose past medical history includes hypertension, psoriasis, asthma, and dental caries, presents to the ED for evaluation of facial swelling and pain since past 3 days. Patient informs visiting the ED earlier today with the presented symptoms and was discharged home with antibiotics and pain medication after negative CT finding. Patient informs improved symptoms after discharged but stated the symptoms returned after taking a nap at home. Patient now presents to the ED with similar symptoms associated with mild headache. Patient denies any other somatic complaints. Patient denies any fever, chills, nausea, vomiting, abdominal pain, chest pain, shortness of breath, neck pain, back pain, dizziness, or any other complaints. Time/Duration: < week Symptom Onset: Gradual Symptom Course: Unchanged Activities at Onset: Light Context: Home Past Medical History - Provider Review Nursing Documentation Reviewed: Yes - Infectious Disease Hx of Infectious Diseases: None - Tetanus Immunization Tetanus Immunization: Unknown - Cardiac Hx Cardiac Disorders: Yes Hx Hypertension: Yes - Pulmonary Hx Respiratory Disorders: Yes Hx Asthma: Yes - Neurological Hx Neurological Disorder: No - HEENT Hx HEENT Disorder: No - Renal Hx Renal Disorder: No - Endocrine/Metabolic Hx Endocrine Disorders: Yes Hx Diabetes Mellitus Type 2: Yes - Hematological/Oncological Hx Blood Disorders: No - Integumentary Hx Dermatological Disorder: No - Musculoskeletal/Rheumatological Hx Musculoskeletal Disorders: No - Gastrointestinal Hx Gastrointestinal Disorders: No - Genitourinary/Gynecological Hx Genitourinary Disorders: No - Psychiatric Hx Psychophysiologic Disorder: Yes Hx Depression: Yes Hx Substance Use: No - Past Surgical History Past Surgical History: No Previous - Anesthesia Hx Anesthesia: No Hx Anesthesia Reactions: No Hx Malignant Hyperthermia: No - Suicidal Assessment Feels Threatened In Home Enviroment: No Family/Social History - Physician Review Nursing Documentation Reviewed: Yes Family/Social History: No Known Family HX Smoking Status: Never Smoked Hx Alcohol Use: Yes Frequency of alcohol use: Few days per week Hx Substance Use: No Hx Substance Use Treatment: No Allergies/Home Meds Allergies/Adverse Reactions: Allergies No Known Allergies Allergy (Verified 08/21/18 22:26) Home Medications: Home Meds Medication Instructions Recorded Confirmed Ofloxacin Otic 0.3% [Floxin 0.3% 5 drop .ROUTE BID 02/10/18 02/10/18 Otic Soln] Review of Systems - Physician Review All systems were reviewed & negative as marked: Yes - Review of Systems ENT: Other (facial swelling) Respiratory: absent: SOB Cardiovascular: absent: Chest Pain Physical Exam - Physical Exam Narrative Physical Exam (Text): 08/21/18 23:22 Constitutional: No acute distress. Head: Normocephalic. Atraumatic. Maxillary/parotid areas of face appear symmetrical. Eyes: L pupil abnormality. ENT: Moist mucous membranes. Poor dentition. Neck: Supple. FROM. Cardiovascular: Regular rate. Chest: No tenderness. Respiratory: Clear to auscultation bilaterally. GI: Soft. Nontender. Nondistended. Back: No CVA tenderness. Musculoskeletal: No tenderness or swelling of extremities. Skin: No rash. Neurologic: Alert, no focal deficit. Vital Signs Reviewed: Yes Vital Signs Temp Pulse Resp BP Pulse Ox 08/21/18 22:30 99.0 F 86 18 141/81 95 Temperature: Afebrile Blood Pressure: Normal Pulse: Regular Respiratory Rate: Normal Appearance: Positive for: Well-Appearing, Non-Toxic, Comfortable Pain Distress: None Mental Status: Positive for: Alert and Oriented X 3 Medical Decision Making ED Course and Treatment: 08/21/18 23:23 Impression: 47 year old male presents to the ED for evaluation of facial swelling and pain. Plan: -- Percocet -- Reassess and disposition Prior Visits: Notes and results from previous visits were reviewed. Progress Notes: Labs and CT reviewed from earlier today. [employer] checked, only 1 prior narcotic prescription in previous year. Will discharge on Percocet, advised of risks. Re- encouraged f/u with ENT and dental and instructed to return to ED for worsening pain, fever, mouth opening difficulties, or any other problem. - Scribe Statement The provider has reviewed the documentation as recorded by the Lindaibtonny Marrufo. All medical record entries made by the Scribe were at my direction and personally dictated by me. I have reviewed the chart and agree that the record accurately reflects my personal performance of the history, physical exam, medical decision making, and the department course for this patient. I have also personally directed, reviewed, and agree with the discharge instructions and disposition. Disposition/Present on Arrival - Present on Arrival Any Indicators Present on Arrival: No History of DVT/PE: No History of Uncontrolled Diabetes: No Urinary Catheter: No History of Decub. Ulcer: No History Surgical Site Infection Following: None - Disposition Have Diagnosis and Disposition been Completed?: Yes Diagnosis: Dental caries Disposition: HOME/ ROUTINE Disposition Time: 23:12 Patient Plan: Discharge Patient Problems: Current Active Problems Problem Status Onset Dental caries Acute Condition: STABLE Discharge Instructions (ExitCare): Dental Pain (DC) Prescriptions: oxyCODONE/Acetaminophen [Percocet 5/325 mg Tab] 1 tab PO Q6 #16 tab Referrals: James Rand DO [Staff Provider] - Follow up with primary Forms: [id number] ([place])
== END 2018-08-21 23:55 | disposition home or self-care (01) ==
LOC: ED 22:09
DX: K02.9 Dental caries, unspecified (principal)

== ENCOUNTER 2018-08-23 23:41 | Emergency (ER) | payer MEDICARE ==
[2018-08-23 23:41] VITALS: BMI 55.9
--- NOTE | 2018-08-24 00:11 | ED PDOC ---
Arrival/HPI - General Chief Complaint: ENT Problem Time Seen by Provider: 08/23/18 23:57 Historian: Patient - History of Present Illness Narrative History of Present Illness (Text): 08/24/18 00:002 47 year old male, whose past medical history includes hypertension, psoriasis, asthma, and dental caries, presents to the emergency department for evaluation of left dental tooth infection and swelling for the past few days. Patient has been seen in the ER twice 2 todays ago. Labs and CT soft tissue neck were done which both were unremarkable. Patient was discharged with Augmentin and Naprosyn on first visit and on the second visit was discharge with percocet. Patient has an appointment with his PMD tomorrow 4PM, but the pain has worsen. Patient reports one episode of vomiting today and a nose bleed earlier today which have since resolved. Patient denies any fever, chills, chest pain, shortness of breath, diarrhea, urinary symptoms, back pain, neck pain, headache, dizziness, or any other complaints. PMD: Dr. Dylan Main Time/Duration: Other (few days) Symptom Onset: Gradual Symptom Course: Worsening Activities at Onset: Light Context: Home Past Medical History - Provider Review Nursing Documentation Reviewed: Yes - Infectious Disease Hx of Infectious Diseases: None - Tetanus Immunization Tetanus Immunization: Unknown - Cardiac Hx Cardiac Disorders: Yes Hx Hypertension: Yes - Pulmonary Hx Respiratory Disorders: Yes Hx Asthma: Yes - Neurological Hx Neurological Disorder: No - HEENT Hx HEENT Disorder: No - Renal Hx Renal Disorder: No - Endocrine/Metabolic Hx Endocrine Disorders: Yes Hx Diabetes Mellitus Type 2: Yes - Hematological/Oncological Hx Blood Disorders: No - Integumentary Hx Dermatological Disorder: No - Musculoskeletal/Rheumatological Hx Musculoskeletal Disorders: No - Gastrointestinal Hx Gastrointestinal Disorders: No - Genitourinary/Gynecological Hx Genitourinary Disorders: No - Psychiatric Hx Psychophysiologic Disorder: Yes Hx Depression: Yes Hx Substance Use: No - Past Surgical History Past Surgical History: No Previous - Anesthesia Hx Anesthesia: No Hx Anesthesia Reactions: No Hx Malignant Hyperthermia: No - Suicidal Assessment Feels Threatened In Home Enviroment: No Family/Social History - Physician Review Nursing Documentation Reviewed: Yes Family/Social History: No Known Family HX Smoking Status: Never Smoked Hx Alcohol Use: Yes Hx Substance Use: No Hx Substance Use Treatment: No Allergies/Home Meds Allergies/Adverse Reactions: Allergies No Known Allergies Allergy (Verified 08/21/18 22:26) Home Medications: Home Meds Medication Instructions Recorded Confirmed RX: Ofloxacin Otic 0.3% [Floxin 5 drop .ROUTE BID 02/10/18 02/10/18 0.3% Otic Soln] Review of Systems - Physician Review All systems were reviewed & negative as marked: Yes - Review of Systems Constitutional: absent: Fevers, Other (Chills) ENT: Other (left dental tooth infection and swelling) Respiratory: absent: SOB Cardiovascular: absent: Chest Pain Gastrointestinal: Nausea, Vomiting. absent: Diarrhea Genitourinary Male: absent: Dysuria, Frequency, Hematuria Musculoskeletal: absent: Back Pain, Neck Pain Neurological: absent: Headache, Dizziness Physical Exam Vital Signs Reviewed: Yes Appearance: Positive for: Well-Appearing, Non-Toxic, Comfortable Pain Distress: None Mental Status: Positive for: Alert and Oriented X 3 - Systems Exam Head: Present: Atraumatic, Normocephalic Pupils: Present: PERRL Extroacular Muscles: Present: EOMI Conjunctiva: Present: Normal Mouth: Present: Moist Mucous Membranes, Normal Tounge, Other (Left upper gingival swelling. Most top teeth missing. Multiple dental caries to all remaining teeth. No tongue swelling) Pharnyx: Present: Normal Nose (Internal): Present: Normal Inspection, Other (dry blood to the left nare) Respiratory/Chest: Present: Clear to Auscultation, Good Air Exchange. No: Respiratory Distress, Accessory Muscle Use Cardiovascular: Present: Regular Rate and Rhythm, Normal S1, S2. No: Murmurs Neurological: Present: GCS=15, CN II-XII Intact, Speech Normal Skin: Present: Warm, Dry, Normal Color. No: Rashes Psychiatric: Present: Alert, Oriented x 3, Normal Insight, Normal Concentration Medical Decision Making ED Course and Treatment: 08/24/18 00:00 Impression: 47 year old male presents complaining of left dental tooth infection and swelling for the past few days. Patient reports an episode of vomiting today. Plan: -- Zofran -- Reassess and disposition Prior Visits: Notes and results from previous visits were reviewed. Progress Notes: 08/24/18 00:20 Patient has been seen twice here for the same complaint; had labs and a CT done showing no deep abscess or infection. Given Rx for augmentin, naprosyn, and percocet. He was advised to follow up as outpatient, and he has an appointment with his PMD tomorrow. Explained that he needs to follow up as scheduled. Continue abx and pain medicaions until prescribed. - Medication Orders Current Medication Orders: Discontinued Medications Ondansetron HCl (Zofran Odt) 4 mg PO STAT STA Stop: 08/24/18 00:04 - Scribe Statement The provider has reviewed the documentation as recorded by the Lo Trujillo Provider Scribe Attestation: All medical record entries made by the Scribe were at my direction and personally dictated by me. I have reviewed the chart and agree that the record accurately reflects my personal performance of the history, physical exam, medical decision making, and the department course for this patient. I have also personally directed, reviewed, and agree with the discharge instructions and disposition. Disposition/Present on Arrival - Present on Arrival Any Indicators Present on Arrival: No History of DVT/PE: No History of Uncontrolled Diabetes: No Urinary Catheter: No History of Decub. Ulcer: No History Surgical Site Infection Following: None - Disposition Have Diagnosis and Disposition been Completed?: Yes Diagnosis: Gingival swelling, Dental abscess Disposition: HOME/ ROUTINE Disposition Time: 23:57 Condition: STABLE Discharge Instructions (ExitCare): Dental Pain (DC) Additional Instructions: EHSAN SIMON, thank you for letting us take care of you today. Your provider was Arti Oden MD and you were treated for INFECTION. The emergency medical care you received today was directed at your acute symptoms. If you were prescribed any medication, please fill it and take as directed. It may take several days for your symptoms to resolve. Return to the Emergency Department if your symptoms worsen, do not improve, or if you have any other problems. Please contact your doctor or call one of the physicians/clinics you have been referred to that are listed on the Patient Visit Information form that is included in your discharge packet. Bring any paperwork you were given at discharge with you along with any medications you are taking to your follow up visit. Our treatment cannot replace ongoing medical care by a primary care provider outside of the emergency department. Thank you for allowing the [facility] team to be part of your care today. If you had an X-Ray or CT scan: A Radiologist will review the ED reading if any change in treatment is needed we will contact you. If you had a blood, urine, or wound culture: It will take several days for the results, if any change in treatment is needed we will contact you. If you had an STI test: It will take 48 hours for the results. Please call after 1 week if you have not heard back. Forms: [employer] ([place])
[2018-08-24 00:49] VITALS: RESP 18; O2SAT 96
[2018-08-24 00:51] VITALS: BP 150/78; PULSE 88; TEMP 98.6
== END 2018-08-24 00:30 | disposition home or self-care (01) ==
LOC: ED 23:41
DX: K04.7 Periapical abscess without sinus (principal); R22.0 Localized swelling, mass and lump, head; E11.9 Type 2 diabetes mellitus without complications; I10 Essential (primary) hypertension